=== PATIENT | male | born 1990 | race Caucasian/White ===

== ENCOUNTER 2018-05-17 20:14 | Emergency (ER) | payer MEDICAID ==
[~2018-05-17] VITALS: Ht 182.9 cm; Wt 95.5 kg
[2018-05-17 20:27] VITALS: Ht 182.9 cm; Wt 95.5 kg
[2018-05-17] MEDS ORDERED: FLUTICASONE PRO16 GM NASAL (20:28)
[2018-05-17] MEDS ORDERED: MEDROL DOSE PACK4 MG (20:29)
[2018-05-17] MEDS ORDERED: AMOXIL875 MG PO (20:50)
[2018-05-17] MEDS ORDERED: CORTISPORIN OTI10 M1 EACH EAR (20:50)
[2018-05-17 23:01] VITALS: BP 148/90
== END 2018-05-17 21:55 | disposition home or self-care (01) ==
LOC: D.ER 20:14
DX: H60.501 Unspecified acute noninfective otitis externa, right ear (principal); H92.01 Otalgia, right ear; I42.9 Cardiomyopathy, unspecified